=== PATIENT | male | born 1990 | race Caucasian/White ===

== ENCOUNTER 2020-02-12 07:56 | Inpatient (IN) | payer BC ==
[2020-02-12] MEDS ORDERED: SODIUM CHLORIDE 0.9% 1,000 ML IV STA (08:16)
--- NOTE | 2020-02-12 08:23 | ED ---
Psych HPI - General Chief Complaint: Psychiatric Symptoms Stated Complaint: overdose Time Seen by Provider: 02/12/20 08:09 Source: patient, RN notes reviewed, old records reviewed Mode of arrival: ambulatory - History of Present Illness Initial Comments: Patient is a 29-year-old male who presents respiratory his mother for concern for intentional overdose on ibuprofen. He reports that he took between 140s and 150 tablets of 200 mg ibuprofen at 1 AM. Patient reportedly woke up this morning with vomiting. His mother heard him vomiting and came into the bathroom to see an empty pill bottle. Patient states he has had since Neris thoughts and this is not the first time that he has attempted to overdose. Patient states he does not see a counselor or psychiatrist at this time. Patient states that he noticed no blood in his emesis. Complains of mild headache as well. Denies any drug or alcohol use. - Related Data Allergies Allergy/AdvReac Type Severity Reaction Status Date / Time metoclopramide [From Reglan] Allergy Unknown Verified 02/12/20 08:06 Review of Systems ROS Statement: Those systems with pertinent positive or pertinent negative responses have been documented in the HPI. ROS Other: All systems not noted in ROS Statement are negative. Past Medical History Past Medical History: No Reported History History of Any Multi-Drug Resistant Organisms: None Reported Past Surgical History: No Surgical Hx Reported Past Psychological History: Depression Smoking Status: Current some day smoker Past Alcohol Use History: Rare Past Drug Use History: Marijuana General Exam - General Exam Comments Initial Comments: 29 year old male, no significant distress. Somewhat anxious Limitations: no limitations General appearance: alert, in no apparent distress Head exam: Present: atraumatic, normocephalic, normal inspection Eye exam: Present: normal appearance, PERRL, EOMI. Absent: scleral icterus, conjunctival injection, periorbital swelling ENT exam: Present: normal exam, mucous membranes moist Neck exam: Present: normal inspection. Absent: tenderness, meningismus, lymphadenopathy Respiratory exam: Present: normal lung sounds bilaterally. Absent: respiratory distress, wheezes, rales, rhonchi, stridor Cardiovascular Exam: Present: regular rate, normal rhythm, normal heart sounds. Absent: systolic murmur, diastolic murmur, rubs, gallop, clicks GI/Abdominal exam: Present: soft, normal bowel sounds. Absent: distended, tenderness, guarding, rebound, rigid Extremities exam: Present: normal inspection, full ROM, normal capillary refill. Absent: tenderness, pedal edema, joint swelling, calf tenderness Back exam: Present: normal inspection Neurological exam: Present: alert, oriented X3, CN II-XII intact Psychiatric exam: Present: normal affect, normal mood Skin exam: Present: warm, dry, intact, normal color. Absent: rash Course Vital Signs 02/12/20 02/12/20 02/12/20 08:01 08:38 10:15 Temperature 97.5 F L 97.9 F Pulse Rate 80 79 69 Respiratory 22 18 18 Rate Blood Pressure 128/92 116/77 114/87 O2 Sat by Pulse 98 100 100 Oximetry - Reevaluation(s) Reevaluation #1: 02/12/20 10:57 Poison control recommended Patient having another BMP next week, and only to monitor. Patient did have an episode of vomiting and Patient was given Protonix and Zofran. Medical Decision Making - Medical Decision Making 29-year-old male presents for intentional overdose of 140 250 tablets of 200 mg ibuprofen. He reports this was done at 1:00 today. He complains of some abdominal pain and vomiting. Mild headache. Patient is given IV fluids and laboratory obtained. EKG was unremarkable. He has no acute abdominal pain. BNP including creatinine are normal this time. Patient is here with his mother. Is medically clear for EPS evaluation. Discussed findings with the Patient and he will be admitted at this time. Patient's been calm and cooperative emergency department. - Lab Data Result diagrams: 02/12/20 08:30 02/12/20 08:30 Lab Results 02/12/20 02/12/20 02/12/20 Range/Units 08:30 08:30 08:30 WBC 3.5 L (3.8-10.6) k/uL RBC 5.06 (4.30-5.90) m/uL Hgb 15.1 (13.0-17.5) gm/dL Hct 46.5 (39.0-53.0) % MCV 91.8 (80.0-100.0) fL MCH 29.9 (25.0-35.0) pg MCHC 32.5 (31.0-37.0) g/dL RDW 12.0 (11.5-15.5) % Plt Count 181 (150-450) k/uL Neutrophils % 55 % Lymphocytes % 36 % Monocytes % 5 % Eosinophils % 2 % Basophils % 1 % Neutrophils # 1.9 (1.3-7.7) k/uL Lymphocytes # 1.3 (1.0-4.8) k/uL Monocytes # 0.2 (0-1.0) k/uL Eosinophils # 0.1 (0-0.7) k/uL Basophils # 0.0 (0-0.2) k/uL PT 11.7 (9.0-12.0) sec INR 1.1 (<1.2) APTT 24.4 (22.0-30.0) sec Sodium (137-145) mmol/L Potassium (3.5-5.1) mmol/L Chloride (98-107) mmol/L Carbon Dioxide (22-30) mmol/L Anion Gap mmol/L BUN (9-20) mg/dL Creatinine (0.66-1.25) mg/dL Est GFR (CKD-EPI)AfAm (>60 ml/min/1.73 sqM) Est GFR (CKD-EPI)NonAf (>60 ml/min/1.73 sqM) Glucose (74-99) mg/dL Plasma Lactic Acid Arcadio (0.7-2.0) mmol/L Calcium (8.4-10.2) mg/dL Phosphorus (2.5-4.5) mg/dL Magnesium (1.6-2.3) mg/dL Total Bilirubin (0.2-1.3) mg/dL AST (17-59) U/L ALT (4-49) U/L Alkaline Phosphatase (38-126) U/L Total Protein (6.3-8.2) g/dL Albumin (3.5-5.0) g/dL Lipase (23-300) U/L Salicylates mg/dL Urine Opiates Screen Not Detected (NotDetected) Ur Oxycodone Screen Not Detected (NotDetected) Urine Methadone Screen Not Detected (NotDetected) Ur Propoxyphene Screen Not Detected (NotDetected) Acetaminophen ug/mL Ur Barbiturates Screen Not Detected (NotDetected) U Tricyclic Antidepress Not Detected (NotDetected) Ur Phencyclidine Scrn Detected H (NotDetected) Ur Amphetamines Screen Not Detected (NotDetected) U Methamphetamines Scrn Not Detected (NotDetected) U Benzodiazepines Scrn Not Detected (NotDetected) Urine Cocaine Screen Not Detected (NotDetected) U Marijuana (THC) Screen Not Detected (NotDetected) Serum Alcohol mg/dL 02/12/20 02/12/20 Range/Units 08:30 08:30 WBC (3.8-10.6) k/uL RBC (4.30-5.90) m/uL Hgb (13.0-17.5) gm/dL Hct (39.0-53.0) % MCV (80.0-100.0) fL MCH (25.0-35.0) pg MCHC (31.0-37.0) g/dL RDW (11.5-15.5) % Plt Count (150-450) k/uL Neutrophils % % Lymphocytes % % Monocytes % % Eosinophils % % Basophils % % Neutrophils # (1.3-7.7) k/uL Lymphocytes # (1.0-4.8) k/uL Monocytes # (0-1.0) k/uL Eosinophils # (0-0.7) k/uL Basophils # (0-0.2) k/uL PT (9.0-12.0) sec INR (<1.2) APTT (22.0-30.0) sec Sodium 142 (137-145) mmol/L Potassium 4.2 (3.5-5.1) mmol/L Chloride 111 H (98-107) mmol/L Carbon Dioxide 18 L (22-30) mmol/L Anion Gap 13 mmol/L BUN 16 (9-20) mg/dL Creatinine 1.21 (0.66-1.25) mg/dL Est GFR (CKD-EPI)AfAm >90 (>60 ml/min/1.73 sqM) Est GFR (CKD-EPI)NonAf 81 (>60 ml/min/1.73 sqM) Glucose 89 (74-99) mg/dL Plasma Lactic Acid Arcadio 1.5 (0.7-2.0) mmol/L Calcium 9.1 (8.4-10.2) mg/dL Phosphorus 3.1 (2.5-4.5) mg/dL Magnesium 2.1 (1.6-2.3) mg/dL Total Bilirubin 0.4 (0.2-1.3) mg/dL AST 19 (17-59) U/L ALT 10 (4-49) U/L Alkaline Phosphatase 56 (38-126) U/L Total Protein 6.8 (6.3-8.2) g/dL Albumin 3.9 (3.5-5.0) g/dL Lipase 143 (23-300) U/L Salicylates <1.0 mg/dL Urine Opiates Screen (NotDetected) Ur Oxycodone Screen (NotDetected) Urine Methadone Screen (NotDetected) Ur Propoxyphene Screen (NotDetected) Acetaminophen <10.0 ug/mL Ur Barbiturates Screen (NotDetected) U Tricyclic Antidepress (NotDetected) Ur Phencyclidine Scrn (NotDetected) Ur Amphetamines Screen (NotDetected) U Methamphetamines Scrn (NotDetected) U Benzodiazepines Scrn (NotDetected) Urine Cocaine Screen (NotDetected) U Marijuana (THC) Screen (NotDetected) Serum Alcohol <10 mg/dL 02/12/20 08:36 EKG performed at 8:28 AM shows normal sinus rhythm with sinus arrhythmia, normal EKG. Ventricular rate 65 bpm. Was 152 ms. She cheondoism is 86 ms. QT QTc is 398/413 ms. Disposition Clinical Impression: Intentional ibuprofen overdose, Suicidal overdose Disposition: TRANSFER TO PSYCH HOSP/UNIT Condition: Stable Is patient prescribed a controlled substance at d/c from ED?: No Referrals: None,Stated [Primary Care Provider] - 1-2 days Time of Disposition: 10:59
[2020-02-12 08:40] LABS: Basophils % (A) 1 %; Eosinophils # (A) 0.1 k/uL (0-0.7); Eosinophils % (A) 2 %; HCT 46.5 % (39.0-53.0); HGB 15.1 gm/dL (13.0-17.5); Lymphocytes # (A) 1.3 k/uL (1.0-4.8); Lymphocytes % (A) 36 %; MCH 29.9 pg (25.0-35.0); MCHC 32.5 g/dL (31.0-37.0); MCV 91.8 fL (80.0-100.0); Mean Platelet Volume 7.2; Monocytes # (A) 0.2 k/uL (0-1.0); Monocytes % (A) 5 %; Neutrophils # (A) 1.9 k/uL (1.3-7.7); Neutrophils % (A) 55 %; Platelet Count 181 k/uL (150-450); RBC 5.06 m/uL (4.30-5.90); WBC 3.5 k/uL (3.8-10.6)
[2020-02-12 08:54] LABS: INR 1.1 (<1.2); Partial Thromboplastin Time 24.4 sec (22.0-30.0); Prothrombin Time 11.7 sec (9.0-12.0)
[2020-02-12 08:57] LABS: ALT 10 U/L (4-49); AST 19 U/L (17-59); Acetaminophen <10.0 ug/mL; African American GFR (CKD) >90 (>60 ml/min/1.73 sqM); Albumin 3.9 g/dL (3.5-5.0); Alcohol <10 mg/dL; Alkaline Phosphatase 56 U/L (38-126); Anion Gap 13 mmol/L; Blood Urea Nitrogen 16 mg/dL (9-20); Calcium 9.1 mg/dL (8.4-10.2); Carbon Dioxide 18 mmol/L (22-30); Chloride 111 mmol/L (98-107); Glucose 89 mg/dL (74-99); Magnesium 2.1 mg/dL (1.6-2.3); Non-African American GFR(CKD) 81 (>60 ml/min/1.73 sqM); Phosphorus 3.1 mg/dL (2.5-4.5); Potassium 4.2 mmol/L (3.5-5.1); Salicylate <1.0 mg/dL; Sodium 142 mmol/L (137-145); Total Bilirubin 0.4 mg/dL (0.2-1.3); Total Protein 6.8 g/dL (6.3-8.2)
[2020-02-12 09:10] LABS: Amphetamine Screen,Urine Not Detected (NotDetected); Barbiturate Screen,Urine Not Detected (NotDetected); Benzodiazepines Screen,Urine Not Detected (NotDetected); Cocaine Screen,Urine Not Detected (NotDetected); Methadone Screen, Urine Not Detected (NotDetected); Opiate Screen,Urine Not Detected (NotDetected); Oxycodone Screen, Urine Not Detected (NotDetected); Phencyclidine Screen,Urine Detected (NotDetected); Tricyclic Antidepressant,Urine Not Detected (NotDetected); Urn Cannabinoid Scrn Not Detected (NotDetected)
[2020-02-12] MEDS ORDERED: PANTOPRAZOLE 40 MG/10 ML VIAL IVP STA (09:18)
[2020-02-12] MEDS ORDERED: ONDANSETRON 4 MG/2 ML VIAL IVP STA (09:42)
[2020-02-12] MEDS ORDERED: MAGNESIUM HYDROXIDE 2,400 MG/10 ML CUP PO PRN (14:36)
[2020-02-12] MEDS ORDERED: ZIPRASIDONE 20 MG VIAL IM PRN (14:36)
[2020-02-12] MEDS ORDERED: ACETAMINOPHEN TAB 325 MG TAB PO PRN (14:36)
[2020-02-12] MEDS ORDERED: LORazepam 1 MG TAB PO PRN (14:36)
--- NOTE | 2020-02-12 16:05 | P.HPIM ---
History of Present Illness H&P Date: 02/12/20 Chief Complaint: Suicidal Attempt 29-year-old male admitted to [facility] after intentional overdose with ibuprofen. Patient states he took about 150 tablets of ibuprofen around 1 AM. And woke up this morning with nausea and vomiting. His mother found him in acute distress and brought him to the emergency department for further evaluation. Patient states that he tried to kill himself because he doesn't want to live anymore. This is his first suicidal attempt. Patient currently denies hematemesis, hemoptysis, melena, or or hematochezia. Patient does admit to occasional marijuana use, cigarette use, and alcohol use. Patient currently denies chest pain or shortness of breath. Patient does admit to intermittent nausea with abdominal pain. White blood cell count was slightly decreased at 3.5 hemoglobin was normal at 15.1 with hematocrit of 46.5 toxicology revealed phencyclidine. Review of Systems A 12 point review of systems was assessed patient was only positive for those discussed in HPI Past Medical History Past Medical History: No Reported History History of Any Multi-Drug Resistant Organisms: None Reported Past Surgical History: No Surgical Hx Reported Past Psychological History: Depression Smoking Status: Current some day smoker Past Alcohol Use History: Rare Past Drug Use History: Marijuana Medications and Allergies Home Medications Medication Instructions Recorded Confirmed Type No Known Home Medications 02/12/20 02/12/20 History Allergies Allergy/AdvReac Type Severity Reaction Status Date / Time metoclopramide [From Reglan] Allergy Unknown Verified 02/12/20 11:33 Physical Exam Osteopathic Statement: *. No significant issues noted on an osteopathic structural exam other than those noted in the History and Physical/Consult. Vitals: Vital Signs Temp Pulse Pulse Resp BP BP Pulse Ox 02/12/20 15:08 97.7 F 76 16 131/74 100 02/12/20 14:11 98.5 F 86 16 128/86 100 02/12/20 14:00 86 16 128/86 100 02/12/20 13:00 18 02/12/20 12:00 18 02/12/20 10:15 69 18 114/87 100 02/12/20 08:38 97.9 F 79 18 116/77 100 02/12/20 08:01 97.5 F L 80 22 128/92 98 Intake and Output 02/12/20 02/12/20 02/12/20 06:59 14:59 22:59 Other: Weight 66.814 kg 65.952 kg General: [non toxic], [no distress], [appears at stated age] Derm: [warm], [dry] Head: [atraumatic], [normocephalic], [symmetric] Eyes: [EOMI], [no lid lag], [anicteric sclera] Mouth: [no lip lesion], [mucus membranes moist] Cardiovascular: [S1S2 reg], [no murmur], [positive posterior tibial pulse bilateral], Lungs: [CTA bilateral], [no rhonchi, no rales] , [no accessory muscle use] Abdominal: [soft], [ nontender to palpation], [no guarding], [no appreciable organomegaly] Ext: [no gross muscle atrophy], [no edema], [no contractures] Neuro: [ CN II-XI grossly intact], [no focal neuro deficits] Psych: [Alert], [oriented], [appropriate affect] Results CBC & Chem 7: 02/12/20 08:30 02/12/20 08:30 Labs: Abnormal Lab Results - Last 24 Hours (Table) 02/12/20 02/12/20 02/12/20 Range/Units 08:30 08:30 08:30 WBC 3.5 L (3.8-10.6) k/uL Chloride 111 H (98-107) mmol/L Carbon Dioxide 18 L (22-30) mmol/L Ur Phencyclidine Scrn Detected H (NotDetected) Thrombosis Risk Factor Assmnt - DVT/VTE Prophylaxis DVT/VTE Prophylaxis: Low risk, early ambulation encouraged Assessment and Plan Assessment: 1. Suicidal attempt with overdose of ibuprofen Monitor CBC and CMP PPI initiated Continue psychiatric recommendations 2. Nausea secondary to #1 Zofran when necessary 3. AM labs Time with Patient: Greater than 30
[2020-02-12] MEDS: PANTOPRAZOLE 40 MG TABLET PO SCH (16:28)
[2020-02-13 08:19] LABS: Basophils % (A) 0 %; Eosinophils # (A) 0.1 k/uL (0-0.7); Eosinophils % (A) 1 %; HGB 14.5 gm/dL (13.0-17.5); Lymphocytes # (A) 2.3 k/uL (1.0-4.8); Lymphocytes % (A) 33 %; MCH 29.1 pg (25.0-35.0); MCHC 31.5 g/dL (31.0-37.0); MCV 92.5 fL (80.0-100.0); Mean Platelet Volume 7.5; Monocytes # (A) 0.4 k/uL (0-1.0); Monocytes % (A) 6 %; Neutrophils # (A) 4.1 k/uL (1.3-7.7); Neutrophils % (A) 58 %; Platelet Count 231 k/uL (150-450); RBC 4.97 m/uL (4.30-5.90); RDW 12.2 % (11.5-15.5)
[2020-02-13 08:22] LABS: Albumin 4.6 g/dL (3.5-5.0); Calcium 9.3 mg/dL (8.4-10.2); Potassium 3.8 mmol/L (3.5-5.1); Total Bilirubin 0.8 mg/dL (0.2-1.3); Total Protein 7.4 g/dL (6.3-8.2)
[2020-02-13] MEDS: PANTOPRAZOLE 40 MG TABLET PO SCH (09:18)
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
[2020-02-13] MEDS: ESCITALOPRAM 10 MG TAB PO SCH (11:16)
[2020-02-13] MEDS: MAG HYDROX/AL HYDROX/SIMETH 30 ML CUP PO PRN (17:51)
[2020-02-14] MEDS: MAG HYDROX/AL HYDROX/SIMETH 30 ML CUP PO PRN (07:04)
[2020-02-14] MEDS: PANTOPRAZOLE 40 MG TABLET PO SCH (09:01)
[2020-02-14] MEDS: ESCITALOPRAM 10 MG TAB PO SCH (09:01)
--- NOTE | 2020-02-14 11:32 | P.PN ---
Progress Note - Text Interval history: The patient is found in group he follows me to an interview room. He states that's he feels like a zombie today. He states he almost feels no emotion. He has been distancing himself somewhat from family by not receiving his mother's phone call. He states "I just don't want to talk to anyone". He continues to harbor some hopelessness thinking. In terms of suicidal thoughts he states "there is a smidge of me wants to be alive". He is recorded as having slept 6 hours. Appetite stable. No behavioral disturbances reported. Mental status exam: The patient is a thin male he has longer hair he wears appear he is wearing eyeglasses, he is dressed in his own clothing hygiene is adequate he's mildly disheveled. Eye contact is appropriate speech is fluent spontaneous nonpressured slow at times. He reports a continued depressed mood with continued hopelessness thoughts. He states only a small portion of him wants to stay alive. He demonstrates no verbal or physical aggressiveness. He continues to be oriented to person place and date. He demonstrates no involuntary movements. Insight and judgment continue to be impaired. He demonstrates no tangential thinking loose associations or flight of ideas. He demonstrates no evidence of auditory or visual hallucinations. He states sometimes he feels paranoid and that people are out to get him but again there is no objective evidence of delusional thought currently. Plan: The patient will be continued on his current medication. We will continue to monitor him for safety and encourage full participation in the milieu. His mood symptoms are still severe and require inpatient psychiatric hospitalization. We will continue to assess his acute safety risk daily.
[2020-02-15 07:06] VITALS: RESP 16
[2020-02-15] MEDS: ESCITALOPRAM 10 MG TAB PO SCH (10:29)
[2020-02-15] MEDS: PANTOPRAZOLE 40 MG TABLET PO SCH (10:29)
--- NOTE | 2020-02-15 11:00 | P.PN ---
Progress Note - Text Interval history: The patient is found in group he follows me to an interview room. He reports there has been some improvement in mood. In terms of suicidal ideation he feels that he feels safer each day. He states he's trying to convince himself to trust others and that there is help outside of the hospital. Historically he states that he has not felt that an outpatient therapist could help him. He continues to not share the traumatic event that happened that precipitated this suicide attempt. He states in terms of hopeless thoughts they are still present but seemed to be decreasing. He reports that he did not sleep well last night due to disturbances from other patients area staff report he slept 6 hours. Appetite stable. Mental status exam the patient is a thin male he seated calmly eye contact is appropriate affect is a little brighter. He states that his mood is improving. He continues to struggle with some hopeless thoughts but again he feels those are improving. We discussed reasons that he should feel hopeful and we spent a significant amount of time discussing resources available to him as an outpatient. He reports no homicidal ideation intent or plan. He feels safe in the hospital. There is no report or evidence of psychosis. He demonstrates no tangential thinking loose associations or flight of ideas. Insight and judgment improving. He is oriented to person place and date. Plan: The patient will continue on his current medication. It does appear that he is clinically stabilizing. I feel it is necessary to evaluate him over the next 24 hours. We will continue to assess his hopelessness thinking and his commitment to engage in outpatient therapy upon discharge If he demonstrates continued stability improvement we will plan to discharge him tomorrow. The patient presented with a serious suicide attempt with the number of pills he consumed. He still has not discussed the traumatic event that precipitated this suicide attempt. He is encouraged to participate in the milieu. We will involve his support system and discharge planning as he will allow.
[2020-02-16] MEDS ORDERED: LORazepam 1 MG TAB ONE (04:00)
[2020-02-16 05:04] VITALS: BP 121/71; PULSE 86
[2020-02-16] MEDS: ESCITALOPRAM 10 MG TAB PO SCH (09:12)
[2020-02-16] MEDS: PANTOPRAZOLE 40 MG TABLET PO SCH (09:12)
--- NOTE | 2020-02-16 11:04 | P.DS ---
Providers Date of admission: 02/12/20 13:48 Expected date of discharge: 02/16/20 Attending physician: Jimenez Castrejon Consults: 02/12/20 14:36 Consult Physician Routine Consulting Provider: Mena Morataya Consult Reason/Comments: [facility] & P medical managment Do you want consulting provider notified?: Yes Primary care physician: Stated None - Discharge Diagnosis(es) (1) Major depressive disorder, recurrent severe without psychotic features Current Visit: Yes Status: Acute Priority: High Hospital Course: Brief summary admission note: This patient is a 29-year-old single male who was admitted to the mental health unit through the emergency room for acute suicidal ideation status post overdose with ibuprofen. The patient stated that he had overdosed with over 100 Motrin tablets while he was in his family home where he resides. He will cut the next day vomiting and presented to the hospital. He reported he has had depression ever since the age of 7. He states that there was an event that occurred that causes his depression but he did not feel comfortable discussing it. He described recent poor sleep and decreased appetite hopeless thoughts. For full details please refer to my psychiatric evaluation dated 02/13/2020. Summary of hospital course: The patient was admitted to the mental health unit voluntarily. We reviewed his presenting symptoms and treatment options. We decided to initiate Lexapro 10 mg daily. The patient tolerated the medication without any reported side effects. He was seen by internal medicine for routine history and physical exam. Social work met with the patient to complete a psychosocial assessment and for discharge planning purposes. The patient reported a progressive improvement of symptoms while here. He appropriately participated in groups. Social work was able to contact his mother for franco terluz elena information and she is comfortable with him returning home. He is comfortable following up again with outpatient therapy as well as medication management. He demonstrates future oriented thinking and reports no further self-injurious thoughts including suicidal ideation. Mental status exam: The patient is a tall thin male appearing his stated age he has longer hair he wears a james and eyeglasses. He is dressed in his own clothing eye contact is appropriate speech is fluent spontaneous nonpressured. Hygiene and grooming are adequate. He demonstrates no tangential thinking loose associations or flight of ideas. He does not appear hypomanic or manic. He is endorsing no auditory or visual hallucinations or any specific delusions. There is no observed evidence of psychosis. He reports no hopelessness thinking he reports no suicidal ideation intent or plan. No reported homicidal ideation intent or plan. He spontaneously describes future oriented thinking. Insight and judgment have sufficiently improved. He remains oriented to person place and date. He demonstrates no verbal or physical aggressiveness. Affect is appropriately expressive any demonstrates an appropriate range of affect. Impressions 1. Major depressive disorder recurrent severe without psychosis, rule out cannabis use disorder Plan: The patient will be discharged mental health unit today to return to his family's home. He will continue on Lexapro 10 mg daily. Social work will arrange his outpatient psychiatric follow-up. He is encouraged to attend individual psychotherapy sessions. He is instructed to abstain from any use of alcohol marijuana or illicit drugs. We discussed of these substances can precipitate mood symptoms and elevate his safety risk. He does not require i npatient chemical dependency treatment and he does not require a medication for substance use. At this time he is appropriate for transition to outpatient care as there is no longer any imminent safety risk. He is instructed to return to the hospital with any acute safety concerns. Patient Condition at Discharge: Stable Plan - Discharge Summary Discharge Rx Participant: No New Discharge Prescriptions: New Escitalopram [Lexapro] 10 mg PO DAILY #30 tab Discharge Medication List Escitalopram [Lexapro] 10 mg PO DAILY #30 tab 02/16/20 [Rx] Follow up Appointment(s)/Referral(s): [facility] [Other] - 02/23/20 2:00 pm (Mara Cohen) None,Stated [Primary Care Provider] - 1-2 days Activity/Diet/Wound Care/Special Instructions: Activity and diet as tolerated. Avoid the use of street drugs and alcohol. Take all medications as prescribed. When you are in need of refills on your medications please contact your medical provider and/or outpatient psychiatrist to have this done. Please go to scheduled outpatient appointment for aftercare treatment. If symptoms return or become worse, call the crisis line at and/or go to the nearest emergency room for evaluation.
[2020-02-16 12:49] VITALS: TEMP 99.1
== END 2020-02-16 13:05 | disposition home or self-care (01) | DRG 885 ==
LOC: EC 07:56 → 3MHU 13:48
PROVIDERS: ADMIT Psychiatry & Neurology Psychiatry; ATTEND Psychiatry & Neurology Psychiatry
DX: F33.2 Major depressive disorder, recurrent severe without psychotic features (principal); T39.312A Poisoning by propionic acid derivatives, intentional self-harm, initial encounter; R11.2 Nausea with vomiting, unspecified; R51 Headache; R10.9 Unspecified abdominal pain; F12.90 Cannabis use, unspecified, uncomplicated; F17.210 Nicotine dependence, cigarettes, uncomplicated; Z91.5 Personal history of self-harm; Z56.0 Unemployment, unspecified; Z88.8 Allergy status to other drugs, medicaments and biological substances; Z81.8 Family history of other mental and behavioral disorders; Z81.1 Family history of alcohol abuse and dependence
CPT/HCPCS: 36415; 80053; 80299; 80306; 80320; 80329; 82075; 83520; 83605; 83690; 83735; 84100; 85025; 85610; 85730; 93005; 96361; 96374; 96375; 99285